=== PATIENT | female | born 1970 | race Two or more races ===

== ENCOUNTER 2017-02-20 13:02 | Outpatient (CLI) | payer OTHER ==
[~2017-02-20 13:02] MED LIST: NYQUIL D COLD295 ML PO
== END 2017-02-20 13:38 | disposition home or self-care (01) ==
LOC: MRI 13:02
DX: R19.04 Left lower quadrant abdominal swelling, mass and lump (principal)
CPT/HCPCS: 72196

== ENCOUNTER 2018-03-19 13:57 | Outpatient (CLI) | payer OTHER | END 2018-03-19 14:13 | disposition home or self-care (01) | LOC: MAMO-SONO 13:57 | DX: Z12.31 Encounter for screening mammogram for malignant neoplasm of breast (principal); N60.11 Diffuse cystic mastopathy of right breast; N60.12 Diffuse cystic mastopathy of left breast ==

== ENCOUNTER 2018-03-26 15:58 | Outpatient (CLI) | payer OTHER | END 2018-03-26 16:06 | disposition home or self-care (01) | LOC: RAD 15:58 | DX: D64.89 Other specified anemias (principal); Z01.818 Encounter for other preprocedural examination; N39.0 Urinary tract infection, site not specified; D25.9 Leiomyoma of uterus, unspecified; R79.89 Other specified abnormal findings of blood chemistry; R94.6 Abnormal results of thyroid function studies ==

== ENCOUNTER 2018-03-31 07:14 | Inpatient (IN) | payer OTHER ==
[~2018-03-31] VITALS: Ht 172.7 cm; Wt 90.7 kg
[2018-03-31] MEDS ORDERED: SYNTH PO (08:15)
[2018-03-31] MEDS ORDERED: [UNRECOGNIZED DRUG - CODE] PO (08:15)
[2018-04-03] MEDS ORDERED: SYNTHROID175 MCG PO (15:36)
== END 2018-04-04 13:12 | DRG 743 ==
LOC: OB/GYN 04-02 06:07 → O/R 04-02 06:07 → CIR.AMB 04-02 07:13 → EDSTATUS 04-02 08:37 → SURH 04-02 08:38 → OB/GYN 04-02 10:19
PROVIDERS: ADMIT Obstetrics & Gynecology Gynecologic Oncology
PROC: 0UB90ZZ Excision of Uterus, Open Approach (ICD-10-PCS; principal; 2018-04-02 10:00)
DX: D25.2 Subserosal leiomyoma of uterus (principal); E03.8 Other specified hypothyroidism

== ENCOUNTER 2018-03-31 09:27 | Outpatient (CLI) | payer OTHER ==
[~2018-03-31 09:27] MED LIST changes: +SYNTH PO; +[UNRECOGNIZED DRUG - CODE] PO
== END 2018-03-31 09:34 | disposition home or self-care (01) ==
LOC: SONOGRAMA 09:27 → MAMO-SONO 09:45
DX: D25.0 Submucous leiomyoma of uterus (principal)

== ENCOUNTER 2021-02-15 09:00 | Outpatient (CLI) | payer OTHER ==
[~2021-02-15 09:00] MED LIST changes: +SYNTHROID175 MCG PO
== END 2021-02-15 09:15 | disposition home or self-care (01) ==
LOC: PPH VACUNA 09:00
PROVIDERS: ATTEND Emergency Medicine Pediatric Emergency Medicine
DX: Z23 Encounter for immunization (principal)

== ENCOUNTER 2021-03-04 19:10 | Emergency (ER) | payer OTHER ==
[~2021-03-04] VITALS: Ht 172.7 cm; Wt 79.4 kg
[2021-03-04] MEDS ORDERED: SYNTHROID100 MCG (19:24)
[2021-03-04] MEDS ORDERED: CYTOMEL25 MCG (19:24)
== END 2021-03-04 20:03 | disposition home or self-care (01) ==
LOC: ER 19:10
DX: J06.9 Acute upper respiratory infection, unspecified (principal)

== ENCOUNTER 2022-11-04 06:16 | Emergency (ER) | payer OTHER ==
[~2022-11-04] VITALS: Ht 172.7 cm; Wt 78.5 kg
[~2022-11-04 06:16] MED LIST changes: +CYTOMEL25 MCG; +SYNTHROID100 MCG
[2022-11-04] MEDS ORDERED: DICLOFENAC SODI75 MG PO (10:36)
== END 2022-11-04 10:52 | disposition home or self-care (01) ==
LOC: ER 06:16
DX: S05.11XA Contusion of eyeball and orbital tissues, right eye, initial encounter (principal); W18.30XA Fall on same level, unspecified, initial encounter; Y93.89 Activity, other specified; Y92.89 Other specified places as the place of occurrence of the external cause; Y99.9 Unspecified external cause status; Z91.018 Allergy to other foods; E03.9 Hypothyroidism, unspecified

== ENCOUNTER 2023-03-21 07:15 | Emergency (ER) | payer OTHER ==
[~2023-03-21] VITALS: Ht 172.7 cm; Wt 81.6 kg
[~2023-03-21 07:15] MED LIST changes: +DICLOFENAC SODI75 MG PO
[2023-03-21] MEDS ORDERED: NP THYROID30 MG PO (07:35)
[2023-03-21 09:15] LABS: HEMATOCRIT 44.1 % (36.0-45.00); HEMOGLOBIN 15.3 g/dL (12.0-15.00); MEAN CELL VOLUME 98.6 fL (80.00-100.00); MEAN CORPUSCULAR HEMOGLOBIN 34.1 pg (27.00-32.0); MEAN CORPUSCULAR HGB CONC 34.6 g/dl (32.0-36.0); PLATELET COUNT 236 K/uL (150-450); RED BLOOD COUNT 4.48 M/uL (4.00-6.00); RED CELL DISTRIBUTION WIDTH 13.6 % (11.5-14.5)
== END 2023-03-21 10:09 | disposition home or self-care (01) ==
LOC: ER 07:16
PROVIDERS: General Practice
DX: B34.9 Viral infection, unspecified (principal); E03.9 Hypothyroidism, unspecified; Z91.018 Allergy to other foods

== ENCOUNTER 2023-04-06 08:56 | Emergency (ER) | payer OTHER ==
[~2023-04-06] VITALS: Ht 172.7 cm; Wt 81.6 kg
[~2023-04-06 08:56] MED LIST changes: +NP THYROID30 MG PO
[2023-04-06] MEDS ORDERED: KETOROLAC TROMETHAMINE 60 MG VIAL IM STA (09:56)
[2023-04-06] MEDS ORDERED: CEFTRIAXONE SODIUM 1,000 MG VIAL IM STA (09:56)
[2023-04-06] MEDS ORDERED: SILVER SULFADIAZINE 50 GM JAR TOP STA (09:56)
[2023-04-06] MEDS ORDERED: TETANUS & DIPHTHERIA TOX,ADULT 0.5 ML VIAL IM ONE (10:00)
[2023-04-06] MEDS ORDERED: AMOX-CLAV 875-1 EAC1 PO (10:53)
[2023-04-06] MEDS ORDERED: SILVADENE20 GM TOP (10:53)
[2023-04-06] MEDS ORDERED: INTESTINEX680 M1 PO (10:53)
[2023-04-06] MEDS ORDERED: KETO10TA2 PO (10:53)
== END 2023-04-06 11:09 ==
LOC: ER 08:56
DX: T25.221A Burn of second degree of right foot, initial encounter (principal); Z91.018 Allergy to other foods